=== PATIENT | female | born 1980 | race Two or more races ===

== ENCOUNTER 2024-11-05 22:34 | Emergency (ER) | payer BC, SELFPAY ==
[2024-11-05 22:47] VITALS: BP 151/80; PULSE 82; RESP 16; TEMP 36.7; O2SAT 99
--- NOTE | 2024-11-05 23:28 | PD.EDANIML ---
ED Animal Bite RME/HPI General Chief Complaint: Animal Bite Stated Complaint: DOG BITE TO LEFT LEG Time Seen by Provider: 11/05/24 23:20 Arrival date/time: 11/05/24 22:34 This is a case of 44-year-old female with no medical history came into the emergency room due to superficial laceration posterior left knee secondary to dog bite history of present illness started 1 hour prior to arrival in the emergency room and the patient bitten with her dog on the posterior left knee sustaining injury patient dog has rabies vaccine up-to-date patient tetanus shot is not up-to-date no other injury noted Limitations: no limitations Related Data Previous Rx's ?Medication ?Instructions ?Recorded amoxicillin 875 mg-potassium 1 tab PO Q12H #20 tabs 11/05/24 clavulanate 125 mg tablet mupirocin 2 % topical ointment 1 applic topical BID #1 tube 11/05/24 Allergies Allergy/AdvReac Type Severity Reaction Status Date / Time aspirin Allergy Unknown Verified 11/05/24 22:35 Review of Systems Review of Systems Systems Reviewed: All systems reviewed, normal except as documented Constitutional Constitutional: Reports system reviewed and no additional complaints, except as documented and Reports as per HPI Cardiovascular Cardiovascular: Reports system reviewed and no additional complaints, except as documented and Reports as per HPI Respiratory Respiratory: Reports system reviewed and no additional complaints, except as documented and Reports as per HPI Gastrointestinal Gastrointestinal: Reports system reviewed and no additional complaints, except as documented and Reports as per HPI Musculoskeletal Musculoskeletal: Reports system reviewed and no additional complaints, except as documented and Reports as per HPI Neurologic Neurologic: Reports system reviewed and no additional complaints, except as documented and Reports as per HPI Past Medical History Social History SMOKING STATUS: Never smoker ED Exam General Limitations: Present no limitations General appearance: Present alert, in no apparent distress and other (Patient is awake alert oriented not in distress nontoxic looking well-hydrated well-nourished) Head Head exam: Present atraumatic, normocephalic and normal inspection Eye Eye exam: Present normal appearance, PERRL and EOMI ENT ENT exam: Present normal exam, normal oropharynx and mucous membranes moist Neck Neck exam: Present normal inspection, full ROM and trachea midline; Absent tenderness, meningismus or lymphadenopathy Chest Chest inspection: Present normal inspection and symmetric chest wall rise; Absent tenderness Respiratory Respiratory exam: Present normal lung sounds bilaterally; Absent respiratory distress, wheezes, stridor, accessory muscle use or prolonged expiratory phase Cardiovascular Cardiovascular exam: Present regular rate, normal rhythm and normal heart sounds; Absent bradycardia, tachycardia, irregular rhythm, systolic murmur or diastolic murmur Abdominal Exam Abdominal exam: Present soft and normal bowel sounds Extremities Exam Extremities exam: Present normal inspection and full ROM Expanded Lower Extremity Exam Hip/Pelvis exam: Present normal inspection and full ROM; Absent tenderness or swelling Upper leg exam: Present normal inspection and full ROM; Absent tenderness or swelling Knee exam: Present normal inspection, full ROM, laceration and other (Noted a 2 laceration 1 cm each linear superficial no foreign body no muscle or tendon injury no bleeding no abscess no cellulitis ROM intact pulses were full and equal capillary refill less than 2 seconds sensory intact); Absent tenderness, swelling, abrasion, ecchymosis, deformity, crepitus, dislocation, erythema, effusion, anterior drawer sign, posterior draw sign, pain with valgus, laxity with valgus, pain with varus, laxity with varus or knee extension intact Back Exam Back exam: Present normal inspection and full ROM Neurological Exam Neurological exam: Present alert, oriented X3, CN II-XII intact, normal gait and reflexes normal; Absent motor sensory deficit Psychiatric Psychiatric exam: Present normal affect and normal mood Skin Skin exam: Present warm, dry, intact, normal color and other (Superficial laceration posterior left knee) Course Quality Measures none Orders Category Date Time Status Amoxicillin/Pot Clav 875 [Augmentin 875] Med 11/05/24 23:25 Once 1 tab PO X1 ONE TET,DIP/PERT AC (Adult)-Tdap [Boostrix Adult (Tdap) Med 11/05/24 23:25 Once Vacc] 0.5 ml IMI .ONCE ONE Vital Signs Vital signs: Vital Signs Temperature 98.1 F 11/05/24 22:47 Pulse Rate 82 11/05/24 22:47 Respiratory Rate 16 11/05/24 22:47 Blood Pressure 151/80 H 11/05/24 22:47 Pulse Oximetry (%) 99 11/05/24 22:47 Oxygen Delivery Method Room Air 11/05/24 22:47 Patient oxygen saturation is 99% in room air Animal Bite MDM Narrative MDM Narrative:: This is a case of 44-year-old female with no medical history came into the emergency room due to superficial laceration posterior left knee secondary to dog bite history of present illness started 1 hour prior to arrival in the emergency room and the patient bitten with her dog on the posterior left knee sustaining injury patient dog has rabies vaccine up-to-date patient tetanus shot is not up-to-date no other injury noted physical examination patient is awake alert oriented not in distress nontoxic looking well-hydrated well-nourished patient sustained a 2 approximately 1 cm each superficial laceration linear posterior left knee no bleeding noted no foreign body no bone injury ROM intact pulses were full and equal capillary refill less than 2 seconds sensory intact the rest of the physical examination and neurological exam were normal wound was cleaned with normal saline and apply triple antibiotic ointment and covered with nonadherent gauze and Roger bandage was applied patient tolerated well neurovascular intact at the time of exam there is no indication to repair the laceration because it is only superficial lines patient dog rabies vaccine is up-to-date patient was given Tdap here in the emergency room and started on Augmentin to prevent infection patient was also prescribed with mupirocin and Augmentin for 10 days to prevent infection patient will follow-up with PCP in 2 days for evaluation and for any worsening symptoms or any signs and symptoms of infection she will return in the emergency room immediately or call 911 Patient was discharged with comfortable condition walking with stable gait. Patient verbalized no further complains explained diagnosis and answered patient question. Patient is comfortable with the proposed management plan including the need to follow up with his/her primary care physician and any specialist if applicable Discussed patient for any urgent condition or worsening sx, He/She needed to go to emergency room immediately or call 911. Patient acknowledge the responsibility to follow up as instructed and to monitor her/his symptoms. For any persistence of the symptoms for more than 3-5 days return precaution advised. Discussed the result of the test and was given printed discharge instruction Patient data External records reviewed:: [facility] previous records Clinical information provided by:: patient Social determinants that could affect healthcare access:: none Patient has the following chronic illnesses:: None How is presenting disease/condition affected by chronic disease/condition?: no chronic disease Evaluation data The following diagnostics were reviewed and interpreted by me:: other (specify) (None) Lab and/or radiology exams considered but not ordered:: None Interpretation Summary: None Medications / Prescriptions Medications or Prescriptions considered but not ordered:: Given Medication administrations:: Medication Administration History Amoxicillin/Clavulanate Potassium (Amoxicillin/Pot Clav 875 Tablet) 1 tab PO X1 ONE Stop: 11/05/24 23:26 Diphtheria/Tetanus/Acell Pertussis (Diphth,Pertuss(Acell),Tet Vac 0.5 Ml Syr- Adult) 0.5 ml IMi .ONCE ONE Stop: 11/05/24 23:26 Given Consultations Consultation(s) initiated? (list below): No Diagnosis Differential diagnosis animal bite: dog bite Most likely diagnosis given after review of the tests above:: Superficial laceration secondary to dog bite Admission Indicated Admission indicated?: not indicated Explain why admission is indicated or not indicated:: Not indicated Admission Request Was there a request for admission?: No Admission Attestation Admission request attestation: Not indicated Disposition Plan Disposition Plan: Discharge Discharge Attestation Discharge Attestation: The patient and all family members were given an opportunity to ask questions and understood the discharge instructions. Discharge instructions specifically effects, indications for sooner follow up or return to the emergency department, and the expected course of current diagnosis. Patient condition: Stable Discharge Plan Plan Patient Disposition: HOME (Self Care) Patient condition on transfer: Stable Prescriptions/Referrals Prescriptions/Med Rec: New amoxicillin-pot clavulanate 875-125 mg tablet 1 tab PO Q12H Qty: 20 0RF mupirocin 2 % ointment 1 applic topical BID Qty: 1 0RF Problem List Clinical Impression: Dog bite, Superficial laceration of knee Patient/Caregiver Discharge Instructions Education Materials: ED Animal Bite (General), ED Dog Bite, ED Laceration Small or ... Additional Instructions: Follow-up with your primary care physician in 2 days for reevaluation worsening symptoms or any emergent concerns such as redness swelling discharge from the wound pain fever chills return to the emergency room immediately or call 911 take your medication as directed finish the course of the probiotic keep the wound clean and dry Print Language: Kazakh Stand Alone Forms: Alejandrina Award Info., Patient Portal Info Letter PA/PRESSURE DISPATCHER Supervising Physician PA/PRESSURE DISPATCHER Supervising Physician: Dr. Wolfe
[2024-11-06] MEDS: DIPHTH,PERTUSS(ACELL),TET VAC 0.5 ML SYR- ADULT IMi (00:04)
[2024-11-06] MEDS: AMOXICILLIN/POT CLAV 875 TABLET 1 TAB PO (00:05)
[2024-11-06 01:27] VITALS: RESP 18
== END 2024-11-06 01:28 | disposition home or self-care (01) ==
PROVIDERS: Emergency Provider Emergency Medicine
DX: S81.012A Laceration without foreign body, left knee, initial encounter (principal); S80.272A Other superficial bite of left knee, initial encounter; W54.0XXA Bitten by dog, initial encounter; Z23 Encounter for immunization
CPT/HCPCS: 90471; 90715; 99282; A9270